=== PATIENT | female | born 1945 | race Caucasian/White ===

== ENCOUNTER → 2016-11-30 | Outpatient (CLI) | payer MEDICARE | LOC: KOH-I 14:55 | DX: M54.16 Radiculopathy, lumbar region (principal); M54.2 Cervicalgia; G25.0 Essential tremor; M47.812 Spondylosis without myelopathy or radiculopathy, cervical region | CPT/HCPCS: 72040; 72070; 72110 ==

== ENCOUNTER → 2017-01-26 | Outpatient (CLI) | payer MEDICARE | LOC: KOH-I 15:17 | DX: R05 Cough (principal) | CPT/HCPCS: 71020 ==

== ENCOUNTER → 2017-02-12 | Outpatient (CLI) | payer MEDICARE | LOC: KOH-I 11:20 | DX: M54.16 Radiculopathy, lumbar region (principal); M51.36 Other intervertebral disc degeneration, lumbar region; M51.37 Other intervertebral disc degeneration, lumbosacral region | CPT/HCPCS: 72110 ==

== ENCOUNTER → 2020-09-28 | Outpatient (CLI) | payer MEDICARE ==
[~2020-09-28] MED LIST: ASPIR 8181 MG PO; BUTALB-ACETAMI1 EAC1 PO; CETIRIZINE HCL10 MG PO; FUROSEMIDE40 MG PO; GABAPENTIN800 MG PO; LEVOTHYROXINE100 MCG PO; NORCO 7.5-3251 EACH PO; OMNICEF 300 MG300 MG PO; PAROXETINE HCL20 MG PO; PLAVIX 75 MG TA75 MG PO; POTASSIUM CHLO20 ME1 PO; PRAVASTATIN SOD10 MG PO; TOPAMAX 100 MG100 MG PO; VIT B12 PO; VIT D3 PO; ZITHROMAX250 MG PO
== END ==
LOC: KOH-I 16:25
DX: M25.521 Pain in right elbow (principal)
CPT/HCPCS: 73080

== ENCOUNTER → 2020-10-15 | Outpatient (CLI) | payer MEDICARE | LOC: KOH-I 14:18 | DX: M50.30 Other cervical disc degeneration, unspecified cervical region (principal); M47.812 Spondylosis without myelopathy or radiculopathy, cervical region; M25.78 Osteophyte, vertebrae | CPT/HCPCS: 72040 ==

== ENCOUNTER 2021-01-22 07:50 | Emergency (ER) | payer MEDICARE ==
[2021-01-22 09:17] LABS: HEMOGLOBIN 11.4 gm/dl (12.3-15.3); RED BLOOD COUNT 3.49 M/UL (4.00-5.10); WHITE BLOOD COUNT 8.3 K/UL (4.5-11.0)
[2021-01-22 11:03] LABS: BUN/CREATININE RATIO 31 (0-10)
== END 2021-01-22 16:00 | disposition home or self-care (01) ==
LOC: ER1 07:50
PROVIDERS: Emergency Medicine
DX: R60.0 Localized edema (principal); D64.9 Anemia, unspecified; M54.2 Cervicalgia; Z79.899 Other long term (current) drug therapy
CPT/HCPCS: 70450; 71045; 72125; 80053; 81001; 82550; 82553; 83874; 83880; 84484; 85025; 93005; 99285

== ENCOUNTER → 2021-02-03 | Outpatient (CLI) | payer MEDICARE | LOC: HEART 5 02-01 15:00 | DX: R55 Syncope and collapse (principal) ==

== ENCOUNTER → 2021-05-05 | Outpatient (CLI) | payer MEDICARE | LOC: KOH-I 14:11 | DX: M50.321 Other cervical disc degeneration at C4-C5 level (principal); M48.02 Spinal stenosis, cervical region; M43.12 Spondylolisthesis, cervical region | CPT/HCPCS: 72040 ==

== ENCOUNTER 2021-09-10 17:06 | Emergency (ER) | payer MEDICARE ==
[2021-09-10] MEDS ORDERED: ZOFRAN4 MG PO (21:07)
== END 2021-09-10 21:35 | disposition home or self-care (01) ==
LOC: ER1 17:06
DX: S06.0X9A Concussion with loss of consciousness of unspecified duration, initial encounter (principal); S13.4XXA Sprain of ligaments of cervical spine, initial encounter; I51.9 Heart disease, unspecified; Z91.012 Allergy to eggs; Z79.82 Long term (current) use of aspirin; Z79.02 Long term (current) use of antithrombotics/antiplatelets; W01.10XA Fall on same level from slipping, tripping and stumbling with subsequent striking against unspecified object, initial encounter; Y92.009 Unspecified place in unspecified non-institutional (private) residence as the place of occurrence of the external cause
CPT/HCPCS: 70450; 72125; 99283

== ENCOUNTER 2022-01-04 01:05 | Emergency (ER) | payer MEDICARE ==
[~2022-01-04 01:05] MED LIST changes: +ZOFRAN4 MG PO
[2022-01-04 01:41] LABS: HEMOGLOBIN 11.3 gm/dl (12.3-15.3); RED BLOOD COUNT 3.54 M/UL (4.00-5.10); WHITE BLOOD COUNT 11.7 K/UL (4.5-11.0)
[2022-01-04] MEDS ORDERED: PERCOCET 5/325 T1 EA PO (05:39)
== END 2022-01-04 06:08 | disposition home or self-care (01) ==
LOC: ER1 01:05
PROVIDERS: Family Medicine
DX: S01.111A Laceration without foreign body of right eyelid and periocular area, initial encounter (principal); D64.9 Anemia, unspecified; Z91.012 Allergy to eggs; G25.81 Restless legs syndrome; W19.XXXA Unspecified fall, initial encounter
CPT/HCPCS: 12013; 70450; 71045; 80053; 85025; 85610; 99284; J2270; J2405

== ENCOUNTER 2022-01-31 11:55 | Inpatient (IN) | payer MEDICARE ==
[~2022-01-31] VITALS: Ht 162.6 cm; Wt 92.5 kg
[~2022-01-31 11:55] MED LIST changes: +HYDROCODON-ACE1 EAC6 PO; -LEVOTHYROXINE100 MCG PO; +LEVOTHYROXINE75 MCG PO; -NORCO 7.5-3251 EACH PO; -PAROXETINE HCL20 MG PO; +PAROXETINE HCL40 MG PO; +PERCOCET 5/325 T1 EA PO; -TOPAMAX 100 MG100 MG PO; +TOPAMAX50 MG PO; -VIT B12 PO; -VIT D3 PO; +VITAMIN B-1250 MCG PO; +VITAMIN D210 MCG PO
[2022-01-31 13:23] LABS: HEMOGLOBIN 10.2 gm/dl (12.3-15.3); RED BLOOD COUNT 3.27 M/UL (4.00-5.10); WHITE BLOOD COUNT 8.7 K/UL (4.5-11.0)
[2022-01-31] MEDS ORDERED: NYSTOP60 GM TOP (15:36)
[2022-02-01 06:23] LABS: HEMOGLOBIN 9.6 gm/dl (12.3-15.3); RED BLOOD COUNT 3.12 M/UL (4.00-5.10); WHITE BLOOD COUNT 7.1 K/UL (4.5-11.0)
[2022-02-02 06:58] LABS: HEMOGLOBIN 10.1 gm/dl (12.3-15.3); RED BLOOD COUNT 3.29 M/UL (4.00-5.10); WHITE BLOOD COUNT 5.8 K/UL (4.5-11.0)
[2022-02-03 06:58] LABS: HEMOGLOBIN 9.6 gm/dl (12.3-15.3); RED BLOOD COUNT 3.21 M/UL (4.00-5.10); WHITE BLOOD COUNT 6.1 K/UL (4.5-11.0)
[2022-02-04 06:44] LABS: HEMOGLOBIN 9.8 gm/dl (12.3-15.3); RED BLOOD COUNT 3.16 M/UL (4.00-5.10)
[2022-02-05 04:15] LABS: HEMOGLOBIN 9.6 gm/dl (12.3-15.3); RED BLOOD COUNT 3.16 M/UL (4.00-5.10)
[2022-02-05 04:57] LABS: WHITE BLOOD COUNT 7.6 K/UL (4.5-11.0)
[2022-02-10] MEDS ORDERED: HYDROCODON-ACE1 EAC6 PO (12:58)
[2022-02-10] MEDS ORDERED: MECLIZINE HCL25 MG PO ×2 (12:58→13:00)
[2022-02-10] MEDS ORDERED: VITAMIN B-1100 M1 PO (12:58)
--- NOTE | 2022-02-10 16:41 | NUR ---
REPORT CALLED TO CHRISTINE MASON. WAITING FOR [facility] TO PICK PATIENT UP FOR TRANSPORT
== END 2022-02-10 18:20 | disposition home or self-care (01) | DRG 74 ==
LOC: ER1 11:55 → CDU 15:50 → MED SURG 4 15:50
PROVIDERS: Internal Medicine; Physician Assistant; Physician Assistant Medical; ADMIT Internal Medicine
DX: G62.9 Polyneuropathy, unspecified (principal); N39.0 Urinary tract infection, site not specified; Z20.822 Contact with and (suspected) exposure to COVID-19; R27.0 Ataxia, unspecified; R29.6 Repeated falls; I95.1 Orthostatic hypotension; D63.1 Anemia in chronic kidney disease; N18.30 Chronic kidney disease, stage 3 unspecified; B95.2 Enterococcus as the cause of diseases classified elsewhere; I12.9 Hypertensive chronic kidney disease with stage 1 through stage 4 chronic kidney disease, or unspecified chronic kidney disease; S43.101A Unspecified dislocation of right acromioclavicular joint, initial encounter; S01.111A Laceration without foreign body of right eyelid and periocular area, initial encounter; S50.01XA Contusion of right elbow, initial encounter; G25.81 Restless legs syndrome; W18.30XA Fall on same level, unspecified, initial encounter; D75.839 Thrombocytosis, unspecified; G47.00 Insomnia, unspecified; Z79.01 Long term (current) use of anticoagulants; Z79.82 Long term (current) use of aspirin; Z98.84 Bariatric surgery status; Z90.710 Acquired absence of both cervix and uterus; Z90.49 Acquired absence of other specified parts of digestive tract; Z85.53 Personal history of malignant neoplasm of renal pelvis; Z86.73 Personal history of transient ischemic attack (TIA), and cerebral infarction without residual deficits; Z82.49 Family history of ischemic heart disease and other diseases of the circulatory system; Z80.9 Family history of malignant neoplasm, unspecified
CPT/HCPCS: 36415; 70450; 70551; 71045; 72141; 72220; 73060; 73080; 73090; 80048; 80053; 81001; 82550; 82553; 82607; 82728; 82746; 83540; 83550; 83735; 84439; 84443; 84484; 85025; 85027; 87077; 87086; 87186; 93005; 96372; 96374; 96376; 97110; 97110-GP-CQ; 97116; 97116-GP-CQ; 97161; 97166; 97530; 97530-GP-CQ; 97535; 99285; G0378; J0290; J0696; J1650; J3370; J7030; J7070